=== PATIENT | male | born 1950 | race Caucasian/White ===

== ENCOUNTER → 2023-11-15 08:06 | Outpatient (REF) | payer MEDICARE, OTHER, SELFPAY | LOC: DHCBC/DCA 08:06 | PROVIDERS: ATTENDING PHYSICIAN Nurse Practitioner; FAMILY PHYSICIAN Chiropractor | DX: R06.09 Other forms of dyspnea (principal) | CPT/HCPCS: 78452; 93017; A9500; J2785 ==

== ENCOUNTER → 2024-02-24 14:25 | Outpatient (REF) | payer MEDICARE, OTHER, SELFPAY | LOC: RAD 14:25 | PROVIDERS: ATTENDING PHYSICIAN Specialist | DX: C67.0 Malignant neoplasm of trigone of bladder (principal) | CPT/HCPCS: 74178; Q9967 ==

== ENCOUNTER → 2024-10-31 15:00 | Outpatient (REF) | payer MEDICARE, OTHER, SELFPAY | LOC: HWRCS 15:00 | PROVIDERS: ATTENDING PHYSICIAN Nurse Practitioner; FAMILY PHYSICIAN Orthopaedic Surgery Adult Reconstructive Orthopaedic Surgery | DX: I25.10 Atherosclerotic heart disease of native coronary artery without angina pectoris (principal); I25.5 Ischemic cardiomyopathy; I50.20 Unspecified systolic (congestive) heart failure | CPT/HCPCS: 93306 ==

== ENCOUNTER → 2025-01-10 12:19 | Outpatient (REF) | payer MEDICARE, OTHER, SELFPAY ==
[2025-01-10 13:11] LABS: Hematocrit 45.4 % (39.0-52.0); Hemoglobin 14.6 g/dL (13.0-18.0); Mean Corp Hgb Conc. 32.2 g/dL (33.0-37.0); Mean Corpuscular Volume 95.4 fL (80.0-94.0); Nucleated Red Blood Cells % 0 % (-); Platelet Count 134 10^3/uL (130-400); Red Cell Dist. Width 12.5 % (11.5-14.5)
[2025-01-10 13:39] LABS: ALT (SGPT) 32 U/L (0-50); AST (SGOT) 34 U/L (17-59); Albumin 4.1 g/dl (3.5-5.0); Alkaline Phosphatase 59 U/L (38-126); Blood Urea Nitrogen 21 mg/dl (9-20); Calcium 9.3 mg/dl (8.4-10.2); Carbon Dioxide 35 mmol/L (22-30); Chloride 100 mmol/L (98-107); Glucose 94 mg/dl (70-99); Potassium 4.2 mmol/L (3.5-5.1); Sodium 137 mmol/L (135-145); Total Protein 7.0 g/dl (6.3-8.2); eGFR > 60.00
== END ==
LOC: SDSPAT 12:19
PROVIDERS: ATTENDING PHYSICIAN Internal Medicine Cardiovascular Disease; FAMILY PHYSICIAN Family Medicine; OTHER PHYSICIAN Internal Medicine Cardiovascular Disease
DX: I44.2 Atrioventricular block, complete (principal); I25.5 Ischemic cardiomyopathy
CPT/HCPCS: 36415; 80053; 85025; 93005

== ENCOUNTER 2025-01-18 11:02 | Day surgery (SDC) | payer MEDICARE, OTHER, SELFPAY ==
[2025-01-10 12:49] VITALS: BMI 20.3
--- NOTE | 2025-01-18 11:07 | W.ICD.CONTRA ---
Post ICD/PATIENT ACCOUNTS SPECIALIST-D
-
History of IN?: Yes
LV Function
Left ventricular function study result?: Ejection Fraction >/= 40%
ACEI/ARB/ARNI
Patient already on ACEI/ARB/ARNI: Yes
Beta-Cliff
Patient already on Beta Cliff: Yes
[2025-01-18 11:22] VITALS: BMI 20.3
[2025-01-18 11:32] VITALS: BP 157/84
[2025-01-18 13:21] VITALS: BP 112/58
[2025-01-18 13:36] VITALS: BP 124/57
[2025-01-18 13:51] VITALS: BP 120/64
--- NOTE | 2025-01-18 14:02 | ITS.CL.ICD ---
Director Trading - ICD
Implantable Cardioverter Defibrillator
Procedure Report:
Date of Procedure: January 18, 2025.
Procedures: ICD Pulse Generator Explantation, ICD Pulse Generator Implantation, and Pocket Revision.
Indication: At the time of upgrade from a pacemaker to a BiV ICD the patient had Class III CHF, LVEF 25-30% for more than 6 months despite maximally tolerated guideline directed medical therapy, a Left Bundle Branch Block, QRS 214 ms from RV
pacing; and a Class I indication for cardiac pacing with symptomatic bradycardia from third degree AV block. The patient is pacer dependent. Ischemic cardiomyopathy with prior TX. Most recent LVEF is 55% on echo dated 10/31/2024. Shared decision
making was employed in the office before the patient decided to proceed with ICD generator change. BiV paced QRS is 156 ms.
Performing physician: David Quan MD, [facility].
Implant: ICD Pulse Generator: Medtronic; Model# [id number]; Serial# [id number].
Explanted ICD Pulse Generator (Implanted 12/05/2017): Medtronic; Model [id number]; Serial# [id number].
Retained RA Lead (Implanted 10/15/1997): 5068-52cm; Serial# [id number]
Retained RV ICD Lead (Implanted 12/05/2017) : Medtronic; 6935M-62cm; Serial# [id number].
Retained LV Lead (Implanted 12/05/2017): Medtronic; Model# 4298-88cm; Serial# [id number].
Previously capped (10/15/2017) RV pacing lead: Medtronic, Model 5068-58cm; Serial# [id number] (implanted: 10/15/1997).
Technique: A time-out was performed. The procedure site was identified. The anesthesia service anesthetized the patient. Preoperative cefazolin was administered before the skin incision. The patient was prepped and draped in the usual fashion. Local
anesthetic was applied to the left pre-pectoral subcutaneous tissue. A 3-inch incision was made over the pulse generator. The capsule was entered with PlasmaBlade cautery. The old ICD pulse generator was explanted. The leads were appropriately
attached to the new ICD pulse generator. The pocket was revised to allow the new device to be inserted and be located more medially and inferiorly. The pocket was irrigated with an antibiotic solution. Hemostasis was excellent. The device and leads
were placed in the pocket. The generator was secured to pectoralis muscle with an 0-silk suture that was place with great care to avoid injuring any of the leads. A [employer], TYRX Absorbable Antibacterial Envelope was placed in the pocket, (Ref
[id number]; Lot [id number]). The incision was closed in three layers with an absorbable suture. Steri-strips and a silver impregnated dressing were applied. The estimated blood loss was less 2 mL. There were no complications. No fluoroscopy was used.
Lead Analysis:
RA lead: P: 3 mV; Threshold: 1.5 V @ 0.4 ms; Impedance: 304 ohms.
RV lead: R: n/a; Threshold: 1 V @ 0.4 ms; Impedance: 342 ohms. HVB 66 ohms.
LV lead: R: n/a mV; Threshold: 2.25 V @ 0.4 ms; Impedance: 1045 ohms.
Final Programming: VT/VF 188 bpm; Judson: DDDR) 50-130 bpm.
Conclusion: Uncomplicated BiV-ICD change. The ICD system is not labeled MRI safe/conditional.
Recommendation: Routine post ICD care.
cc: Renata Romero MD and Geoff Garnett MD ([facility]).
[2025-01-18 14:07] VITALS: BP 133/67
== END 2025-01-18 14:35 | disposition home or self-care (01) ==
LOC: CATH 11:02
PROVIDERS: ATTENDING PHYSICIAN Internal Medicine Cardiovascular Disease; FAMILY PHYSICIAN Chiropractor; OTHER PHYSICIAN Internal Medicine Cardiovascular Disease
DX: Z45.02 Encounter for adjustment and management of automatic implantable cardiac defibrillator (principal); I50.22 Chronic systolic (congestive) heart failure; I11.0 Hypertensive heart disease with heart failure; I25.5 Ischemic cardiomyopathy; Z95.5 Presence of coronary angioplasty implant and graft; I25.10 Atherosclerotic heart disease of native coronary artery without angina pectoris; E78.5 Hyperlipidemia, unspecified; Z79.82 Long term (current) use of aspirin; Z79.899 Other long term (current) drug therapy; Z85.51 Personal history of malignant neoplasm of bladder; F17.200 Nicotine dependence, unspecified, uncomplicated; I44.7 Left bundle-branch block, unspecified
CPT/HCPCS: 33264; C1882

== ENCOUNTER → 2025-02-05 08:04 | Outpatient (REF) | payer MEDICARE, OTHER, SELFPAY | LOC: RAD 08:04 | PROVIDERS: ATTENDING PHYSICIAN Specialist; FAMILY PHYSICIAN Orthopaedic Surgery Adult Reconstructive Orthopaedic Surgery | DX: C67.0 Malignant neoplasm of trigone of bladder (principal) | CPT/HCPCS: 74178; Q9967 ==